=== PATIENT | male | born 1975 | race Caucasian/White ===

== ENCOUNTER → 2017-05-10 | Outpatient (CLI) | payer OTHER ==
[~2017-05-10] MED LIST: GADOBUTROL 10 MMOL/10 ML VIAL ONE; GADOBUTROL 7.5 MMOL/7.5 ML VIAL ONE
== END | disposition home or self-care (01) ==
LOC: CFH 12:39
PROVIDERS: ATTEND Psychiatry & Neurology Neurology
DX: R53.1 Weakness (principal)
CPT/HCPCS: 70553; A9585

== ENCOUNTER → 2017-07-16 | Outpatient (CLI) | payer OTHER ==
[~2017-07-16] MED LIST changes: -GADOBUTROL 10 MMOL/10 ML VIAL ONE; -GADOBUTROL 7.5 MMOL/7.5 ML VIAL ONE; +LIDOCAINE-MPF 1%, 5ML ONE
== END ==
LOC: RAD 07:49
PROVIDERS: ATTEND Otolaryngology
DX: D49.7 Neoplasm of unspecified behavior of endocrine glands and other parts of nervous system (principal)
CPT/HCPCS: 76942; 88112

== ENCOUNTER 2017-08-31 08:31 | Day surgery (SDC) | payer OTHER ==
[~2017-08-31] VITALS: Ht 180.3 cm; Wt 64.2 kg
[~2017-08-31 08:31] MED LIST changes: +EPINEPHRINE 1 MG/ML, 1ML ONE; -LIDOCAINE-MPF 1%, 5ML ONE; +LIDOCAINE/PF 1%, 30ML ONE; +NEOSPORIN OINT, 15GM ONE
[2017-08-31] MEDS ORDERED: LACTATED RINGERS 1,000 ML IV SCH (08:55)
[2017-08-31] MEDS ORDERED: MIDAZOLAM 1 MG/ML, 2ML ONE (09:07)
[2017-08-31] MEDS ORDERED: FENTANYL PF 250 MCG/5ML ONE (09:07)
[2017-08-31 09:14] VITALS: BP 110/73
[2017-08-31] MEDS ORDERED: NONE PER PT (09:14)
[2017-08-31] MEDS ORDERED: OxyconTIN ER 10 MG TAB.ER PO ONE (10:00)
[2017-08-31] MEDS ORDERED: GABAPENTIN 300 MG CAPSULE PO ONE (10:00)
[2017-08-31] MEDS ORDERED: ACETAMINOPHEN 500 MG TABLET PO ONE (10:00)
[2017-08-31] MEDS ORDERED: ONDANSETRON ODT 8 MG PO ONE (10:30)
[2017-08-31] MEDS ORDERED: MORPHINE SULFATE 4 MG/ML, 1ML IVPush PRN (11:30)
[2017-08-31] MEDS ORDERED: HYDROcodone/APAP 7.5-325MG/15ML UDC PO PRN (11:30)
[2017-08-31] MEDS ORDERED: OXYcodone 5 MG/5 ML ORAL.SOL UDC PO PRN (11:30)
[2017-08-31] MEDS ORDERED: PROMETHAZINE 25 MG/ML, 1ML IV PRN (11:30)
[2017-08-31] MEDS ORDERED: NEOSTIGMINE 1 MG/ML, 10ML ONE (13:25)
[2017-08-31] MEDS ORDERED: DEXAMETHASONE 4 MG/ML, 1ML ONE ×6 (13:25→13:26)
[2017-08-31] MEDS ORDERED: SUCCINYLCHOLINE 20 MG/ML, 10ML ONE ×3 (13:25)
[2017-08-31] MEDS ORDERED: GLYCOPYRROLATE 0.2MG/1ML, 5ML ONE (13:25)
[2017-08-31] MEDS ORDERED: PROPOFOL 10 MG/ML, 20ML ONE ×4 (13:25)
[2017-08-31] MEDS ORDERED: NALOXONE 0.4 MG/ML, 1ML ONE (13:25)
[2017-08-31] MEDS ORDERED: CEFAZOLIN 1,000 MG ONE ×3 (13:25→13:26)
[2017-08-31] MEDS ORDERED: OXYcodone 5 MG/5 ML ORAL.SOL UDC ONE (14:33)
[2017-08-31] MEDS ORDERED: FENTANYL PF 100 MCG/2ML ONE (14:33)
[2017-08-31] MEDS: FENTANYL PF 100 MCG/2ML IV PRN ×4 (14:36→15:17)
[2017-08-31] MEDS ORDERED: ROCURONIUM 10 MG/ML,10ML ONE (15:52)
[2017-08-31] MEDS ORDERED: ONDANSETRON 2MG/ML, 2ML IVPush PRN (16:00)
== END 2017-08-31 19:00 ==
LOC: OUT 08:31
PROVIDERS: ATTEND Specialist
DX: D11.0 Benign neoplasm of parotid gland (principal); Z72.89 Other problems related to lifestyle; F17.220 Nicotine dependence, chewing tobacco, uncomplicated; Z88.8 Allergy status to other drugs, medicaments and biological substances
CPT/HCPCS: 42415; 88307; 88331; J0171; J0330; J0690; J1100; J2310; J2704; J2710; J3010; J3490; J7120; Q0162; 88305; J2250